=== PATIENT | female | born 1990 | race African-American/Black ===

== ENCOUNTER 2017-02-25 22:11 | Inpatient (IN) ==
[2017-02-25 22:46] LABS: Apearance,Urine Slightly Hazy (Clear); Bacteria,Urine Occasional /HPF (Few); Bilirubin,Urine Negative (Negative); Blood, Urine Negative (Negative); Glucose,Urine (UA) Negative (Negative); Ketones,Urine Negative (Negative); Nitrite,Urine Negative (Negative); Protein,Urine Negative; RBC,Urine 2 /HPF (0-4); Squamous Epithelial Cell,Urine Occasional /HPF (0-10); Transitional Epi Cells,Urine Occasional /HPF (<1); Urine Color Straw (Yellow); Urine Specific Gravity 1.003 (1.001-1.035); Urine Urobilinogen < 2.0 EU/DL (0.2-1.0); WBC,Urine 54 /HPF (0-6)
[2017-02-25] MEDS ORDERED: NITROFURANTOIN MACRO/MONO 100 MG CAPSULE PO SCH (23:45)
[2017-02-26] MEDS: LACTATED RINGERS 1,000 ML IV SCH ×4 (00:39→16:48)
[2017-02-26] MEDS ORDERED: ONDANSETRON 4 MG/2 ML VIAL IV PRN (07:18)
[2017-02-26] MEDS ORDERED: AMPICILLIN INJ 2,000 MG in SODIUM CHLORIDE 0.9% 100 ML IV ONE (07:28)
[2017-02-26] MEDS ORDERED: OXYTOCIN/LR 20 UNIT/1,000 ML BAG IV SCH (07:30)
[2017-02-26 07:59] LABS: Basophils % 0.4 % (0.0-0.8); Eosinophils % 0.4 % (0.00-10.9); Hematocrit 33.1 VOL% (35.7-47.0); Hemoglobin 11.5 GM/DL (12.0-16.0); Immature Granulocytes % 0.6 %; Immature Granulocytes Absolute 0.05 #; Lymphocytes # 1.6 10*3/uL (1.4-4.0); Lymphocytes % 18.9 % (21.3-54.2); Mean Corpuscular HGB Conc 34.7 GM/DL (32-36); Mean Corpuscular Hemoglobin 30 PG (27-34); Mean Corpuscular Volume 86.2 FL (87-102); Mean Platelet Volume 10.2 FL (9.6-12.0); Monocytes # 0.8 10*3/uL (0.11-0.8); Monocytes % 10.1 % (1.7-12.7); Neutrophils # 5.8 10*3/uL (1.4-7.4); Neutrophils % 69.6 % (38.7-73.9); Platelet Count 267 T/CUMM (130-400); Red Blood Count 3.84 MC/CUMM (3.8-5.5); Red Cell Distribution Width 14.4 % (9.3-17.3); White Blood Count 8.3 T/CUMM (4-12)
[2017-02-26] MEDS: MEPERIDINE 50 MG/1 ML VIAL IV PRN ×3 (10:40→14:45)
[2017-02-26] MEDS: AMPICILLIN INJ 1,000 MG in SODIUM CHLORIDE 0.9% 50 ML IV SCH ×2 (12:10→17:23)
[2017-02-26] MEDS ORDERED: LACTATED RINGERS 1,000 ML IV ONE (15:34)
[2017-02-26] MEDS ORDERED: FAMOTIDINE 20 MG/2 ML VIAL IV ONE (15:34)
[2017-02-26] MEDS ORDERED: CITRIC ACID/SODIUM CITRATE 30 ML UDCUP PO ONE (15:34)
[2017-02-26] MEDS ORDERED: ePHEDrine 50 MG/ML AMP IV PRN (15:35)
[2017-02-26] MEDS ORDERED: PROMETHAZINE 25 MG/1 ML VIAL IM ONE (15:35)
[2017-02-26] MEDS ORDERED: hydrOXYzine HCL 25 MG/1 ML VIAL IM PRN (15:35)
[2017-02-26] MEDS ORDERED: diphenhydrAMINE 50 MG/1 ML VIAL IV PRN ×2 (15:35)
[2017-02-26] MEDS ORDERED: fentaNYL 2 MCG/ROPIV 0.2% EPID 150 ML EPIDURAL SCH (16:00)
[2017-02-26 18:46] LABS: Apearance,Urine CLEAR (Clear); Bilirubin,Urine Negative (Negative); Blood, Urine Negative (Negative); Glucose,Urine (UA) Negative (Negative); Ketones,Urine Negative (Negative); Nitrite,Urine Negative (Negative); Protein,Urine Negative; RBC,Urine <1 /HPF (0-4); Urine Color Colorless (Yellow); Urine Specific Gravity 1.004 (1.001-1.035); Urine Urobilinogen < 2.0 EU/DL (0.2-1.0)
[2017-02-26] MEDS ORDERED: miSOPROStol 200 MCG TABLET ONE (19:08)
[2017-02-26] MEDS ORDERED: METHYLERGONOVINE 0.2 MG/1 ML AMP ONE (19:08)
[2017-02-26] MEDS ORDERED: METHYLERGONOVINE 0.2 MG/1 ML AMP IM ONE (20:12)
[2017-02-26] MEDS ORDERED: BISACODYL 10 MG SUPP RECTAL PRN (20:43)
[2017-02-26] MEDS ORDERED: RHO(D) IMMUNE GLOBULIN 300 MCG SYRINGE IM ONE (20:43)
[2017-02-26] MEDS ORDERED: ACETAMINOPHEN 325 MG TABLET PO PRN (20:43)
[2017-02-26] MEDS ORDERED: WITCH HAZEL PADS 100/JAR TOP PRN (20:43)
[2017-02-26] MEDS ORDERED: BENZOCAINE 20%/MENTHOL 0.5% SPRAY 56 GM CAN TOP PRN (20:43)
[2017-02-26] MEDS ORDERED: DIPH/TET/ACEL PERT BOOSTER VACCINE 0.5 ML VIAL IM ONE (20:43)
[2017-02-26] MEDS ORDERED: LANOLIN 50% CREAM 0.3 OZ TUBE TOP PRN (20:43)
[2017-02-26] MEDS ORDERED: OXYTOCIN/LR 20 UNIT/1,000 ML BAG IV ONE (20:43)
[2017-02-26] MEDS ORDERED: HYDROCORTISONE 2.5% RECTAL CREAM 30 GM TUBE TOP PRN (20:43)
[2017-02-26] MEDS ORDERED: MEASLES/MUMPS/RUBELLA VACCINE 0.5 ML VIAL SUBCUT ONE (20:43)
[2017-02-26] MEDS ORDERED: IBUPROFEN 800 MG TABLET PO PRN (20:43)
[2017-02-26] MEDS ORDERED: oxyCODONE/ACETAMINOPHEN 5-325 MG TABLET PO PRN (20:43)
[2017-02-27 05:04] LABS: Basophils % 0.2 % (0.0-0.8); Eosinophils % 0.1 % (0.00-10.9); Hematocrit 30.3 VOL% (35.7-47.0); Hemoglobin 10.3 GM/DL (12.0-16.0); Immature Granulocytes % 0.5 %; Immature Granulocytes Absolute 0.08 #; Lymphocytes # 1.4 10*3/uL (1.4-4.0); Lymphocytes % 8.2 % (21.3-54.2); Mean Corpuscular Hemoglobin 30 PG (27-34); Mean Corpuscular Volume 86.8 FL (87-102); Mean Platelet Volume 10.5 FL (9.6-12.0); Monocytes # 1.4 10*3/uL (0.11-0.8); Monocytes % 8.2 % (1.7-12.7); Neutrophils # 13.8 10*3/uL (1.4-7.4); Neutrophils % 82.8 % (38.7-73.9); Platelet Count 231 T/CUMM (130-400); Red Blood Count 3.49 MC/CUMM (3.8-5.5); Red Cell Distribution Width 14.6 % (9.3-17.3); White Blood Count 16.6 T/CUMM (4-12)
[2017-02-27] MEDS: DOCUSATE SODIUM 100 MG CAPSULE PO SCH ×2 (09:09→20:38)
[2017-02-27] MEDS: FERROUS SULFATE 325 MG TABLET PO SCH (09:09)
[2017-02-27] MEDS: oxyCODONE/ACETAMINOPHEN 5-325 MG TABLET PO PRN ×2 (12:36→19:15)
[2017-02-28] MEDS: DOCUSATE SODIUM 100 MG CAPSULE PO SCH (08:18)
[2017-02-28] MEDS: FERROUS SULFATE 325 MG TABLET PO SCH (08:18)
[2017-02-28 11:16] VITALS: BP 112/72
== END 2017-02-28 13:30 | disposition home or self-care (01) | DRG 560 ==
LOC: N.LDOUT 22:11 → N.LD 22:12 → N.OB 02-26 22:15
PROVIDERS: ADMIT Obstetrics & Gynecology; ATTEND Obstetrics & Gynecology

== ENCOUNTER 2018-05-27 04:43 | Inpatient (IN) ==
[2018-05-27] MEDS ORDERED: ONDANSETRON 4 MG/2 ML VIAL IV PRN (04:54)
[2018-05-27] MEDS ORDERED: BUTORPHANOL 2 MG/ML VIAL IV PRN (04:54)
[2018-05-27] MEDS ORDERED: MEPERIDINE 50 MG/1 ML VIAL IM PRN (04:54)
[2018-05-27] MEDS ORDERED: OXYTOCIN/LR 20 UNIT/1,000 ML BAG IV SCH (05:00)
[2018-05-27] MEDS: LACTATED RINGERS 1,000 ML IV SCH ×2 (05:35→10:40)
[2018-05-27] MEDS ORDERED: AMPICILLIN INJ 2,000 MG in SODIUM CHLORIDE 0.9% 100 ML IV ONE (05:39)
[2018-05-27 05:41] LABS: Basophils % 0.4 % (0.0-0.8); Eosinophils % 0.8 % (0.00-10.9); Hematocrit 34.5 VOL% (35.7-47.0); Hemoglobin 11.3 GM/DL (12.0-16.0); Immature Granulocytes % 0.4 %; Immature Granulocytes Absolute 0.02 #; Lymphocytes # 1.6 10*3/uL (1.4-4.0); Lymphocytes % 33.9 % (21.3-54.2); Mean Corpuscular HGB Conc 32.8 GM/DL (32-36); Mean Corpuscular Hemoglobin 28 PG (27-34); Mean Corpuscular Volume 85.4 FL (87-102); Mean Platelet Volume 10.3 FL (9.6-12.0); Monocytes # 0.6 10*3/uL (0.11-0.8); Monocytes % 11.9 % (1.7-12.7); Neutrophils # 2.5 10*3/uL (1.4-7.4); Neutrophils % 52.6 % (38.7-73.9); Platelet Count 260 T/CUMM (130-400); Red Blood Count 4.04 MC/CUMM (3.8-5.5); Red Cell Distribution Width 13.9 % (9.3-17.3); White Blood Count 4.8 T/CUMM (4-12)
[2018-05-27 05:57] LABS: Alanine Aminotransferase 12 U/L (13-56); Albumin 2.6 G/DL (3.4-5.0); Alkaline Phosphatase 243 U/L (45-117); Aspartate Amino Transferase 16 U/L (0-37); Bilirubin,Total < 0.39 MG/DL (0.2-1.0); Blood Urea Nitrogen 5 MG/DL (7-18); Calcium 8.4 MG/DL (8.5-10.1); Glucose 82 MG/DL (74-106); Osmolality,Calculated 272.5 MOS/KG (273-304); Potassium 3.3 MMOL/L (3.5-5.1); Sodium 139 MMOL/L (136-145); Total Protein 7.1 G/DL (6.4-8.3)
[2018-05-27] MEDS ORDERED: FAMOTIDINE 20 MG/2 ML VIAL IV ONE (09:20)
[2018-05-27] MEDS ORDERED: diphenhydrAMINE 50 MG/1 ML VIAL IV PRN ×2 (09:20)
[2018-05-27] MEDS ORDERED: hydrOXYzine HCL 25 MG/1 ML VIAL IM PRN (09:20)
[2018-05-27] MEDS ORDERED: CITRIC ACID/SODIUM CITRATE 30 ML UDCUP PO ONE (09:20)
[2018-05-27] MEDS ORDERED: PROMETHAZINE 25 MG/1 ML VIAL IM ONE (09:20)
[2018-05-27] MEDS ORDERED: NALOXONE 0.4 MG/ML VIAL IV PRN (09:20)
[2018-05-27] MEDS ORDERED: ePHEDrine 50 MG/ML AMP IV PRN (09:20)
[2018-05-27] MEDS ORDERED: ONDANSETRON 4 MG/2 ML VIAL IV ONE (09:20)
[2018-05-27] MEDS ORDERED: fentaNYL 2 MCG/ROPIV 0.2% EPID 100 ML EPIDURAL SCH (09:30)
[2018-05-27] MEDS ORDERED: AMPICILLIN INJ 1,000 MG in SODIUM CHLORIDE 0.9% 100 ML IV SCH (11:00)
[2018-05-27 12:49] LABS: Apearance,Urine CLEAR (Clear); Bacteria,Urine Occasional /HPF (Few); Bilirubin,Urine Negative (Negative); Blood, Urine Negative (Negative); Glucose,Urine (UA) Negative (Negative); Ketones,Urine Negative (Negative); Mucus,Urine Occasional /LPF (Occasional); Nitrite,Urine Negative (Negative); Protein,Urine Negative; RBC,Urine 1 /HPF (0-4); Squamous Epithelial Cell,Urine Occasional /HPF (0-10); Urine Color Yellow (Yellow); Urine Specific Gravity 1.011 (1.001-1.035); Urine Urobilinogen < 2.0 EU/DL (0.2-1.0); WBC,Urine 1 /HPF (0-6)
[2018-05-27] MEDS ORDERED: LANOLIN 50% CREAM 0.3 OZ TUBE TOP PRN (14:25)
[2018-05-27] MEDS ORDERED: HYDROCORTISONE 2.5% RECTAL CREAM 30 GM TUBE TOP PRN (14:25)
[2018-05-27] MEDS ORDERED: RHO(D) IMMUNE GLOBULIN 300 MCG SYRINGE IM ONE (14:25)
[2018-05-27] MEDS ORDERED: OXYTOCIN/LR 20 UNIT/1,000 ML BAG IV ONE (14:25)
[2018-05-27] MEDS ORDERED: MEASLES/MUMPS/RUBELLA VACCINE 0.5 ML VIAL SUBCUT ONE (14:25)
[2018-05-27] MEDS ORDERED: BISACODYL 10 MG SUPP RECTAL PRN (14:25)
[2018-05-27] MEDS ORDERED: DIPH/TET/ACEL PERT BOOSTER VACCINE 0.5 ML VIAL IM ONE (14:25)
[2018-05-27] MEDS ORDERED: WITCH HAZEL PADS 100/JAR TOP PRN (14:25)
[2018-05-27] MEDS ORDERED: oxyCODONE/ACETAMINOPHEN 5-325 MG TABLET PO PRN (14:25)
[2018-05-27] MEDS ORDERED: ACETAMINOPHEN 325 MG TABLET PO PRN (14:25)
[2018-05-27] MEDS ORDERED: BENZOCAINE 20%/MENTHOL 0.5% SPRAY 56 GM CAN TOP PRN (14:25)
[2018-05-27] MEDS: IBUPROFEN 800 MG TABLET PO PRN (18:50)
[2018-05-27] MEDS: DOCUSATE SODIUM 100 MG CAPSULE PO SCH (20:48)
[2018-05-27] MEDS: FERROUS SULFATE 325 MG TABLET PO SCH ×2 (20:48)
[2018-05-28] MEDS: oxyCODONE/ACETAMINOPHEN 5-325 MG TABLET PO PRN ×3 (01:08→20:40)
[2018-05-28 05:11] LABS: Basophils % 0.4 % (0.0-0.8); Eosinophils # 0.1 10*3/uL (0.0-0.87); Hematocrit 29.1 VOL% (35.7-47.0); Hemoglobin 9.4 GM/DL (12.0-16.0); Immature Granulocytes % 0.4 %; Immature Granulocytes Absolute 0.03 #; Lymphocytes # 1.9 10*3/uL (1.4-4.0); Lymphocytes % 22.6 % (21.3-54.2); Mean Corpuscular HGB Conc 32.3 GM/DL (32-36); Mean Corpuscular Hemoglobin 28 PG (27-34); Mean Corpuscular Volume 86.6 FL (87-102); Mean Platelet Volume 10.3 FL (9.6-12.0); Monocytes # 0.8 10*3/uL (0.11-0.8); Monocytes % 9.3 % (1.7-12.7); Neutrophils # 5.4 10*3/uL (1.4-7.4); Neutrophils % 66.3 % (38.7-73.9); Platelet Count 196 T/CUMM (130-400); Red Blood Count 3.36 MC/CUMM (3.8-5.5); Red Cell Distribution Width 13.8 % (9.3-17.3); White Blood Count 8.2 T/CUMM (4-12)
[2018-05-28] MEDS: IBUPROFEN 800 MG TABLET PO PRN (06:15)
[2018-05-28] MEDS: MULTIVITAMIN (PRENATAL) TABLET PO SCH (09:44)
[2018-05-28] MEDS: DOCUSATE SODIUM 100 MG CAPSULE PO SCH ×2 (09:44→20:34)
[2018-05-28] MEDS: FERROUS SULFATE 325 MG TABLET PO SCH ×2 (09:44→20:34)
[2018-05-29] MEDS: IBUPROFEN 800 MG TABLET PO PRN (06:46)
[2018-05-29 07:55] VITALS: BP 121/78
[2018-05-29] MEDS: FERROUS SULFATE 325 MG TABLET PO SCH ×2 (10:55→10:56)
[2018-05-29] MEDS: DOCUSATE SODIUM 100 MG CAPSULE PO SCH (10:55)
[2018-05-29] MEDS: MULTIVITAMIN (PRENATAL) TABLET PO SCH (10:56)
== END 2018-05-29 11:45 | disposition home or self-care (01) | DRG 560 ==
LOC: N.LDOUT 04:43 → N.LD 04:47 → N.OB 16:45
PROVIDERS: ADMIT Obstetrics & Gynecology; ATTEND Obstetrics & Gynecology